=== PATIENT | female | born 1970 | race Hispanic/Latino ===

== ENCOUNTER 2021-05-24 02:46 | Inpatient (IN) | payer BC ==
[~2021-05-24] VITALS: Ht 154.9 cm; Wt 57.2 kg
[2021-05-24 02:52] VITALS: BP 158/63
[2021-05-24] MEDS ORDERED: ASPIRIN 325MG TAB PO ONE (04:00)
[2021-05-24 04:36] LABS: BASOPHILS % (AUTO) 0.3 % (0.0-5.0); EOSINOPHILS % (AUTO) 2.1 % (0.0-8.0); HEMATOCRIT 34.7 % (36-48); LYMPHOCYTES % (AUTO) 14.3 % (21.0-51.0); MEAN CORPUSCULAR HEMOGLOBIN 28.2 pg (27.0-33.0); MEAN CORPUSCULAR HGB CONC 33.4 g/dL (32.0-36.0); MEAN CORPUSCULAR VOLUME 84.4 fL (79-99); MONOCYTES % (AUTO) 8.6 % (3.0-13.0); PLATELET COUNT (AUTO) 287 K/uL (130-400); RED BLOOD CELL COUNT(AUTO) 4.11 MIL/uL (4.00-5.50); RED CELL DISTRIBUTION WIDTH 13.1 % (11.0-15.5); WHITE BLOOD COUNT (AUTO) 8.9 K/uL (4.8-10.8)
[2021-05-24 05:00] LABS: ALANINE AMINOTRANSFERASE 23 U/L (12-78); ALBUMIN 2.9 g/dL (3.5-5.0); ASPARTATE AMINOTRANSFERASE 12 U/L (10-37); B-TYPE NATRIURETIC PEPTIDE 67 pg/mL (0-100); BILIRUBIN,TOTAL 0.4 mg/dL (0.2-1.0); CARBON DIOXIDE 25 mmol/L (21-32); CHLORIDE 100 mmol/L (101-111); CREATININE 0.7 mg/dL (0.5-1.5); GLOMERULAR FILTR. RATE CALC 93 mL/min (>60); LIPASE < 50 U/L (114-286); POTASSIUM 4.1 mmol/L (3.5-5.1); SODIUM SERUM 137 mmol/L (136-145); TOTAL PROTEIN, SERUM 7.4 g/dL (6.0-8.3); UREA NITROGEN, BLOOD 20 mg/dL (7-18)
[2021-05-24 05:01] LABS: GLUCOSE,RANDOM 406 mg/dL (70-105)
[2021-05-24 05:24] VITALS: BP 146/70
[2021-05-24 05:57] LABS: ABG BASE EXCESS -1.3 mmol/L (-2.0-3.0); ABG HCO3 23.8 mmol/L (21.0-28.0); ABG OXYGEN SATURATION 68.4 % (95.0-99.0); ABG PCO2 42 mmHg (32-45)
[2021-05-24] MEDS ORDERED: CEFTRIAXONE 1G VIAL IVP ONE (06:00)
[2021-05-24] MEDS ORDERED: 0.9% NACL 250ML IVPB ONE (06:00)
[2021-05-24] MEDS ORDERED: AZITHROMYCIN 500MG VIAL IVPB ONE (06:00)
[2021-05-24] MEDS ORDERED: AZITHROMYCIN 500MG+NS 250ML 250 ML IV ONE (06:19)
[2021-05-24] MEDS ORDERED: IOHEXOL 350 MG/ML 100ML INFUS..BTL IV ONE (06:27)
[2021-05-24 07:14] LABS: APPEARANCE,URINE CLOUDY (CLEAR); BILIRUBIN,URINE NEGATIVE (NEGATIVE); COLOR,URINE YELLOW (YELLOW); GLUCOSE, URINE (UA) >=1000 mg/dL (NEGATIVE); KETONES,URINE >=80 mg/dL (NEGATIVE); LEUKOCYTE ESTERASE ,URINE TRACE (NEGATIVE); NITRATE,URINE POSITIVE (NEGATIVE); OCCULT BLOOD,URINE TRACE-INTACT (NEGATIVE); PH,URINE 5.5 (5.0-8.0); PROTEIN,URINE NEGATIVE (NEGATIVE); UROBILINOGEN,URINE 0.2 mg/dL (0.2-1.0)
[2021-05-24 07:30] VITALS: BP 133/66
[2021-05-24 07:37] LABS: BACTERIA,URINE Moderate /HPF (None Seen); RBC,URINE 0-1 /HPF (0-1); SQUAMOUS EPITHELIAL CELL,UR Rare /HPF (0-2); WBC,URINE 51-100 /HPF (0-1)
[2021-05-24] MEDS: CEFTRIAXONE 1G VIAL IV SCH (08:30)
[2021-05-24] MEDS ORDERED: FAMOTIDINE 20MG TAB PO SCH (09:00)
[2021-05-24] MEDS ORDERED: ENOXAPARIN SODIUM 40 MG/0.4 ML SYRINGE SQ SCH (09:00)
[2021-05-24] MEDS: FAMOTIDINE 20MG TAB PO SCH ×2 (09:02→21:15)
[2021-05-24 09:30] VITALS: BP 133/66
[2021-05-24] MEDS: INSULIN HUMULIN R 100 UNIT/ML 3ML SQ SCH ×5 (12:11→21:15)
[2021-05-24] MEDS ORDERED: IBUPROFEN 400 MG TABLET PO PRN (13:00)
[2021-05-24] MEDS: ENOXAPARIN SODIUM 40 MG/0.4 ML SYRINGE SQ SCH ×2 (13:00→21:16)
[2021-05-24] MEDS: DEXAMETHASONE 4 MG TAB PO SCH (17:12)
[2021-05-24 18:56] VITALS: BP 167/75
[2021-05-24] MEDS: INSULIN GLARGINE 100 UNITS/ML 10 ML VIAL SQ SCH (21:16)
[2021-05-25] VITALS (7 sets, daily range): BP systolic 128–152; BP diastolic 49–72
[2021-05-25] MEDS ORDERED: METF-444 PO (03:53)
[2021-05-25] MEDS ORDERED: CALCIUM SUPPLIMENT (03:54)
[2021-05-25] MEDS ORDERED: [UNRECOGNIZED DRUG - REMARK] (03:54)
[2021-05-25] MEDS: INSULIN HUMULIN R 100 UNIT/ML 3ML SQ SCH ×8 (06:25→21:11)
[2021-05-25 06:41] LABS: BASOPHILS % (AUTO) 0.1 % (0.0-5.0); HEMATOCRIT 35.9 % (36-48); LYMPHOCYTES % (AUTO) 8.9 % (21.0-51.0); MEAN CORPUSCULAR HEMOGLOBIN 27.6 pg (27.0-33.0); MEAN CORPUSCULAR HGB CONC 32.3 g/dL (32.0-36.0); MEAN CORPUSCULAR VOLUME 85.5 fL (79-99); MONOCYTES % (AUTO) 1.5 % (3.0-13.0); NEUTROPHILS % (AUTO) 88.8 % (40.0-77.0); PLATELET COUNT (AUTO) 320 K/uL (130-400); RED CELL DISTRIBUTION WIDTH 13.1 % (11.0-15.5); WHITE BLOOD COUNT (AUTO) 7.1 K/uL (4.8-10.8)
[2021-05-25 07:05] LABS: ALBUMIN 2.7 g/dL (3.5-5.0); BILIRUBIN,TOTAL 0.4 mg/dL (0.2-1.0); CREATININE 0.6 mg/dL (0.5-1.5); CRP QUANTITATIVE 132.3 mg/L (0.00-9.0); POTASSIUM 4.6 mmol/L (3.5-5.1); TOTAL PROTEIN, SERUM 7.1 g/dL (6.0-8.3)
[2021-05-25] MEDS: ENOXAPARIN SODIUM 40 MG/0.4 ML SYRINGE SQ SCH ×2 (08:29→19:41)
[2021-05-25] MEDS: CEFTRIAXONE 1G VIAL IV SCH (08:29)
[2021-05-25] MEDS: DEXAMETHASONE 4 MG TAB PO SCH (08:30)
[2021-05-25] MEDS: FAMOTIDINE 20MG TAB PO SCH ×2 (09:56→19:39)
[2021-05-25] MEDS ORDERED: ATOR10TA69 PO (10:06)
[2021-05-25] MEDS ORDERED: LISI-809 PO (10:06)
[2021-05-25 12:30] LABS: ABG BASE EXCESS -3.2 mmol/L (-2.0-3.0); ABG HCO3 20.6 mmol/L (21.0-28.0); ABG OXYGEN SATURATION 96.3 % (95.0-99.0); ABG PCO2 34 mmHg (32-45)
[2021-05-25] MEDS: INSULIN GLARGINE 100 UNITS/ML 10 ML VIAL SQ SCH (21:11)
[2021-05-25] MEDS ORDERED: INSULIN HUMULIN R 100 UNIT/ML 3ML SQ ONE (21:30)
[2021-05-26] MEDS ORDERED: INSULIN HUMULIN R 100 UNIT/ML 3ML SQ ONE (01:30)
[2021-05-26 03:15] VITALS: BP 128/65
[2021-05-26 05:43] LABS: BASOPHILS % (AUTO) 0.1 % (0.0-5.0); EOSINOPHILS % (AUTO) 0.1 % (0.0-8.0); HEMATOCRIT 32.1 % (36-48); LYMPHOCYTES % (AUTO) 15.3 % (21.0-51.0); MEAN CORPUSCULAR HEMOGLOBIN 27.8 pg (27.0-33.0); MEAN CORPUSCULAR HGB CONC 33.3 g/dL (32.0-36.0); MEAN CORPUSCULAR VOLUME 83.4 fL (79-99); MONOCYTES % (AUTO) 6.1 % (3.0-13.0); NEUTROPHILS % (AUTO) 77.7 % (40.0-77.0); PLATELET COUNT (AUTO) 334 K/uL (130-400); RED BLOOD CELL COUNT(AUTO) 3.85 MIL/uL (4.00-5.50); WHITE BLOOD COUNT (AUTO) 10.1 K/uL (4.8-10.8)
[2021-05-26 05:59] LABS: ALBUMIN 2.4 g/dL (3.5-5.0); BILIRUBIN,TOTAL 0.1 mg/dL (0.2-1.0); CREATININE 0.5 mg/dL (0.5-1.5); CRP QUANTITATIVE 53.8 mg/L (0.00-9.0); POTASSIUM 3.7 mmol/L (3.5-5.1); TOTAL PROTEIN, SERUM 6.2 g/dL (6.0-8.3)
[2021-05-26] MEDS: INSULIN HUMULIN R 100 UNIT/ML 3ML SQ SCH ×4 (06:17→13:01)
[2021-05-26] MEDS ORDERED: INSLAN SQ (07:11)
[2021-05-26 08:00] VITALS: BP 131/72
[2021-05-26] MEDS: CEFTRIAXONE 1G VIAL IV SCH (09:41)
[2021-05-26] MEDS: FAMOTIDINE 20MG TAB PO SCH (09:42)
[2021-05-26] MEDS: ENOXAPARIN SODIUM 40 MG/0.4 ML SYRINGE SQ SCH (09:43)
[2021-05-26 12:00] VITALS: BP 142/60
== END 2021-05-26 13:55 | disposition home or self-care (01) | DRG 280 ==
LOC: EDH 02:46 → EDHIP 08:02 → 3CH 05-25 03:14
PROVIDERS: ADMIT Internal Medicine; ATTEND Internal Medicine
DX: I21.9 Acute myocardial infarction, unspecified (principal); J18.9 Pneumonia, unspecified organism; N39.0 Urinary tract infection, site not specified; R09.02 Hypoxemia; E11.9 Type 2 diabetes mellitus without complications; Z20.822 Contact with and (suspected) exposure to COVID-19; Z91.14 Patient's other noncompliance with medication regimen; Z83.3 Family history of diabetes mellitus; Z82.49 Family history of ischemic heart disease and other diseases of the circulatory system
CPT/HCPCS: 36415; 36600; 71045; 71275; 80053; 81001; 82435; 82803; 82947; 82948; 83605; 83690; 83880; 84132; 84295; 84484; 85018; 85025; 85378; 85651; 86140; 87040; 87077; 87088; 87186; 87635; 87804; 93005; C9803; G0378; J0456; J0696; J1650; J1815; J8540; Q9967